=== PATIENT | female | born 1975 | race Hispanic/Latino ===

== ENCOUNTER 2017-03-24 01:51 | Emergency (ER) | payer OTHER ==
[2017-03-24 02:01] VITALS: RESP 18; TEMP 98.7
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
[2017-03-24 05:45] VITALS: BP 118/72; PULSE 82; O2SAT 99
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
== END 2017-03-24 05:44 | disposition home or self-care (01) ==
LOC: ED 01:51
DX: S09.93XA Unspecified injury of face, initial encounter (principal); Y04.0XXA Assault by unarmed brawl or fight, initial encounter

== ENCOUNTER 2017-11-07 20:46 | Emergency (ER) | payer MEDICAID, OTHER ==
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
[2017-11-07 21:20] VITALS: BMI 20.5
[2017-11-07 21:45] VITALS: RESP 18; TEMP 97.8
[2017-11-08 07:14] VITALS: BP 125/76; PULSE 83; O2SAT 98
== END 2017-11-08 07:22 | disposition home or self-care (01) ==
LOC: ED 20:46
DX: F10.129 Alcohol abuse with intoxication, unspecified (principal); Y90.9 Presence of alcohol in blood, level not specified